=== PATIENT | male | born 1945 | race Caucasian/White ===

== ENCOUNTER 2017-10-04 15:21 | Emergency (ER) | payer OTHER ==
[2017-10-04] MEDS ORDERED: LIDOCAINE 1% 20 ML MDV ONE (18:26)
[2017-10-04] MEDS ORDERED: TETANUS & DIPHTHERIA TOX,ADULT 0.5 ML VIAL ONE (18:26)
[2017-10-04] MEDS ORDERED: CEFAZOLIN SODIUM 1 GM/VIAL ONE (20:21)
--- NOTE | 2017-10-04 20:57 | RAD REPORT ---
EXAM DESCRIPTION: RAD -Hand Left 3 View - 10/04/2017 6:53 pm CLINICAL HISTORY: Left hand pain status post injury FINDINGS: A bandage overlies the first digit history detail somewhat. Bony densities at the first IP joint probably are sesamoids and/or chronic. An acute avulsion fractur e is doubtful. However if the patient has clinical symptoms to suggest this then MRI would be recomme nded No dislocation is seen
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
== END 2017-10-04 21:57 | disposition home or self-care (01) ==
LOC: ER 15:21
PROC: 0JQK0ZZ Repair Left Hand Subcutaneous Tissue and Fascia, Open Approach (ICD-10-PCS; principal; 2017-10-04)
DX: S61.012A Laceration without foreign body of left thumb without damage to nail, initial encounter (principal); W33.19XA Accidental malfunction of other larger firearm, initial encounter; Y93.89 Activity, other specified; Y92.9 Unspecified place or not applicable; I10 Essential (primary) hypertension; E78.5 Hyperlipidemia, unspecified; Z79.01 Long term (current) use of anticoagulants; Z79.82 Long term (current) use of aspirin; Z95.818 Presence of other cardiac implants and grafts
CPT/HCPCS: 12002; 73130; 90714; 96372; 99283; J0690

== ENCOUNTER 2020-05-19 11:33 | Emergency (ER) | payer OTHER ==
--- OUTSIDE RECORDS SUMMARY | 2020-05-19 11:36 | XMS REPORT | Continuity of Care Document ---
:1945 [address] [facility] t Address [address] [place] [address] [address]. [address] [place] [address] Care Team Providers Name Role Phone Unavailable Unavailable Unavailable Problems This patient has no known problems. Allergies, Adverse Reactions, Alerts This patient has no known allergies or adverse reactions. Medications This patient has no known medications. Procedures This patient has no known procedures. Encounters Start End Encounter Admission Attending Care Care Encounter Source Date/Time Date/Time Type Type Clinicians Facility Department ID 2018-10-03 2018-10-03 Outpatient [id number] 06:32:00 06:32:00 Results This patient has no known results.
[2020-05-19 12:29] LABS: Basophils % 0.7 % (0-1.3); Lymphocytes % 19.5 % (15.3-44.8); MPV 8.1 fL (7.6-11.3); RBC Red Blood Cell Count 5.18 M/uL (4.33-5.43)
--- NOTE | 2020-05-19 12:31 | RAD REPORT ---
EXAM DESCRIPTION: RAD - Chest Single View - 05/19/2020 12:23 pm CLINICAL HISTORY: COUGH Chest pain. COMPARISON: CHEST PA AND LAT 2 VIEW dated 09/24/2014 FINDINGS: Portable technique limits examination quality. The lungs are grossly clear. The heart is normal in size. No displaced fractures. IMPRESSION: No acute intrathoracic process suspected.
[2020-05-19 12:34] LABS: Protime INR 1.01
[2020-05-19 12:48] LABS: ALT/SGPT 30 U/L (12-78); AST/SGOT 31 U/L (15-37); Albumin 2.8 g/dL (3.4-5.0); Alkaline Phosphatase 100 U/L (45-117); BUN Blood Urea Nitrogen 15 mg/dL (7-18); Bicarbonate 32 mmol/L (21-32); Bilirubin Direct 0.2 mg/dL (0-0.2); Bilirubin Total 0.6 mg/dL (0.2-1.0); Glucose Level 94 mg/dL (74-106); Magnesium 2.2 mg/dL (1.8-2.4); NT PRO-BNP 206 pg/mL (<125); Potassium 4.2 mmol/L (3.5-5.1); Protein, Total 6.7 g/dL (6.4-8.2); Sodium Level 139 mmol/L (136-145); Troponin (Emerg Dept Use Only) < 0.02 ng/mL (0.0-0.045)
[2020-05-19 13:24] LABS: Urine Blood NEGATIVE (NEG); Urine Glucose NEGATIVE (NEG); Urine Protein NEGATIVE (NEG); Urine Specific Gravity 1.025 (1.005-1.030)
[2020-05-19] MEDS ORDERED: NA CHLORIDE 0.9% 1,000 ML ONE ×2 (13:28→16:34)
--- NOTE | 2020-05-19 15:50 | ER ---
Nurse's Notes [facility] Name: Corina Foreman Age: 74 yrs Sex: Male : 1945 Arrival Date: 05/19/2020 Time: 11:34 Bed 13 Private MD: Diagnosis: Dyspnea;Weakness;Vomiting;Diarrhea, unspecified;Hypotension-RESOLVED;Viral pneumonia, unspecified Presentation: 05/19 11:43 Chief complaint: Patient states: Low BP at home for 2 days. 80/40 this morning. Reports ll1 weakness, malaise, dizziness, no appetite since . + diarrhea. Coronavirus screen: Client denies travel out of the [place] in the last 14 days. difficulty breathing, fatigue, Client presents with at least one sign or symptom that may indicate coronavirus-19. Standard/surgical mask placed on the client. Ebola Screen: Patient denies travel to an Ebola-affected area in the 21 days before illness onset. Initial Sepsis Screen: Does the patient meet any 2 criteria? No. Patient's initial sepsis screen is negative. Does the patient have a suspected source of infection? No. Patient's initial sepsis screen is negative. Risk Assessment: Do you want to hurt yourself or someone else? Patient reports no desire to harm self or others. Onset of symptoms was May 12, 2020. 11:43 Method Of Arrival: Wheelchair ll1 11:43 Acuity: CLEMENTE 2 ll1 Historical: - Allergies: 11:46 Hydrocodone-Acetaminophen; ll1 - PMHx: 11:46 Hyperlipidemia; Hypertension; ll1 - PSHx: 11:46 Heart stents; ll1 - Immunization history:: Flu vaccine is not up to date. - Social history:: Smoking status: Patient denies any tobacco usage or history of. - Family history:: not pertinent. Screenin:01 Abuse screen: Denies threats or abuse. Denies injuries from another. Nutritional ca1 screening: No deficits noted. Tuberculosis screening: No symptoms or risk factors identified. Fall Risk IV access (20 points). Assessment: 12:01 General: Appears in no apparent distress. comfortable, Behavior is calm, cooperative, ca1 appropriate for age. Pain: Denies pain. Neuro: Level of Consciousness is awake, alert, obeys commands, Oriented to person, place, time, situation. Cardiovascular: Heart tones S1 S2 present Capillary refill < 3 seconds Patient's skin is warm and dry. Rhythm is sinus rhythm. Respiratory: Airway is patent Respiratory effort is even, unlabored, Respiratory pattern is regular, symmetrical, Breath sounds are clear bilaterally. GI: Abdomen is flat, non-distended, Bowel sounds present X 4 quads. Abd is soft and non tender X 4 quads. : No signs and/or symptoms were reported regarding the genitourinary system. EENT: No signs and/or symptoms were reported regarding the EENT system. Derm: Skin is intact, is healthy with good turgor, Skin is pink, warm \T\ dry. Musculoskeletal: Circulation, motion, and sensation intact. Capillary refill < 3 seconds. 12:43 Reassessment: Patient appears in no apparent distress at this time. Patient and/or ca1 family updated on plan of care and expected duration. Pain level reassessed. Patient is alert, oriented x 3, equal unlabored respirations, skin warm/dry/pink. 13:41 Reassessment: Patient appears in no apparent distress at this time. Patient and/or ca1 family updated on plan of care and expected duration. Pain level reassessed. Patient is alert, oriented x 3, equal unlabored respirations, skin warm/dry/pink. 14:44 Reassessment: Patient appears in no apparent distress at this time. Patient and/or ca1 family updated on plan of care and expected duration. Pain level reassessed. Patient is alert, oriented x 3, equal unlabored respirations, skin warm/dry/pink. 15:56 Reassessment: Patient appears in no apparent distress at this time. Patient and/or ca1 family updated on plan of care and expected duration. Pain level reassessed. Patient is alert, oriented x 3, equal unlabored respirations, skin warm/dry/pink. General: Appears. 16:50 Reassessment: Patient appears in no apparent distress at this time. Patient and/or ca1 family updated on plan of care and expected duration. Pain level reassessed. Patient is alert, oriented x 3, equal unlabored respirations, skin warm/dry/pink. 17:36 Reassessment: Patient appears in no apparent distress at this time. Patient is alert, ca1 oriented x 3, equal unlabored respirations, skin warm/dry/pink. Patient states feeling better. Vital Signs: 11:43 BP 107 / 85; Pulse 69; Resp 18; Temp 97.7; Pulse Ox 96% ; Weight 106.59 kg; Height 5 ll1 ft. 9 in. (175.26 cm); 12:43 BP 110 / 74; Pulse 66; Resp 20 S; Pulse Ox 97% on R/A; ca1 13:41 BP 113 / 74; Pulse 63; Resp 16 S; Pulse Ox 97% on R/A; ca1 14:44 BP 124 / 88; Pulse 65; Resp 18 S; Pulse Ox 98% on R/A; ca1 15:35 BP 114 / 78 LA Supine (auto/reg); Pulse 63; Resp 17; Pulse Ox 98% on R/A; dh4 15:35 BP 104 / 73 LA Standing (auto/reg); Pulse 68; Resp 21; Pulse Ox 97% ; dh4 15:35 BP 123 / 87 LA Sitting (auto/reg); Pulse 70; Resp 22; Pulse Ox 97% on R/A; dh4 16:21 BP 120 / 70; Pulse 68; Resp 18 S; Pulse Ox 98% on R/A; ca1 17:07 BP 137 / 86; Pulse 68; Resp 15 S; Pulse Ox 98% on R/A; ca1 17:36 BP 130 / 76; Pulse 71; Resp 18 S; Pulse Ox 98% on R/A; ca1 11:43 Body Mass Index 34.70 (106.59 kg, 175.26 cm) ll1 ED Course: 11:34 Patient arrived in ED. as 11:43 Arm band placed on. ll1 11:45 Triage completed. ll1 11:51 Albert Her MD is Attending Physician. [facility] 11:59 Anca Britton, JAIME is Primary Nurse. ca1 12:01 Patient has correct armband on for positive identification. Placed in gown. Bed in low ca1 position. Call light in reach. Side rails up X2. night monitor on. Pulse ox on. NIBP on. Warm blanket given. 12:13 No provider procedures requiring assistance completed. Initial lab(s) drawn, by me, ca1 sent to lab. Inserted saline lock: 20 gauge in right antecubital area, using aseptic technique. Blood collected. 12:23 XRAY Chest (1 view) In Process Unspecified. EDMS 13:19 CORONAVIRUS Sent. ca1 15:50 Nader Topete MD is Referral Physician. mis 16:06 CT Chest For PE Angio In Process Unspecified. EDMS 16:18 Troponin (emerg Dept Use Only) Sent. ca1 16:18 Repeat lab(s) drawn. by me, sent to lab. ca1 16:39 Kelby Rodgers MD is Referral Physician. mis 17:36 IV discontinued, intact, bleeding controlled, No redness/swelling at site. Pressure ca1 dressing applied. Administered Medications: 13:13 Drug: NS 0.9% 1000 ml Route: IV; Rate: 1 bolus; Site: right antecubital; ca1 14:15 Follow up: IV Status: Completed infusion; IV Intake: 1000ml ca1 16:21 Drug: NS 0.9% 1000 ml Route: IV; Rate: 1 bolus; Site: right antecubital; ca1 17:30 Follow up: Response: No adverse reaction; RASS: Alert and Calm (0); IV Status: ca1 Completed infusion; IV Intake: 1000ml 16:45 Drug: Zithromax 500 mg Route: PO; ca1 17:30 Follow up: Response: No adverse reaction ca1 16:46 Drug: Pepcid 20 mg Route: IVP; Site: right antecubital; ca1 17:00 Follow up: Response: No adverse reaction ca1 17:00 Drug: Decadron - Dexamethasone 6 mg Route: IVP; Site: right antecubital; ca1 17:30 Follow up: Response: No adverse reaction ca1 17:07 Drug: Rocephin 1 grams Route: IV; Rate: per protocol; Site: right antecubital; ca1 Intake: 14:15 IV: 1000ml; Total: 1000ml. ca1 17:30 IV: 1000ml; Total: 2000ml. ca1 Outcome: 15:50 Discharge ordered by . mis 17:36 Discharged to home ambulatory, with family. ca1 17:36 Condition: stable 17:36 Discharge instructions given to patient, Instructed on discharge instructions, follow up and referral plans. medication usage, Demonstrated understanding of instructions, follow-up care, medications, Prescriptions given X 4. 17:38 Patient left the ED. ll1 Addendum: 05/23/2020 15:46 Addendum: COVID-19 Result: Positive result giiven to ED physician to notify pt. i w Physician: Luis Shin MD Physician attempted to contact pt. 16:16 Addendum: COVID-19 Result: Positive result giiven to ED physician to notify pt. i w Physician: Luis Shin MD Physician was able to contact pt and pt was notified of positive COVID-19 swab result. Physician answered pt questions. Signatures: Dispatcher [employer] Albert Francisco MD MD cha Martinez, Amelia as Williams, Irene, RN RN iw Anca Britton RN RN [facility] Parag Vazquez [facility] Roland De La Fuente RN RN ll1 Corrections: (The following items were deleted from the chart) 1548 15:46 Addendum: COVID-19 Result: Positive result giiven to ED physician to notify pt. iw Physician: Luis Shin MD Physician was able to contact pt and pt was notified of positive COVID-19 swab result. Physician answered pt questions. 1548 15:46 Addendum: COVID-19 Result: Positive result giiven to ED physician to notify pt. iw Physician: Luis Shin MD Physician attempted to contact pt. iw
--- NOTE | 2020-05-19 15:51 | EDPHYS ---
Physician Documentation [facility] Name: Corina Foreman Age: 74 yrs Sex: Male : 1945 Arrival Date: 05/19/2020 Time: 11:34 Bed 13 Private MD: ED Physician Albert Her HPI: 05/19 13:02 This 74 yrs old Male presents to ER via Wheelchair with complaints of Blood mis Pressure Problem, Dizziness. 13:02 The patient presents with dizziness. Onset: The symptoms/episode began/occurred 4 mis day(s) ago. Context: occurred at an unknown location. Modifying factors: The symptoms are alleviated by nothing, the symptoms are aggravated by movement of head. Associated signs and symptoms: Pertinent positives: palpitations. Severity of symptoms: At their worst the symptoms were mild in the emergency department the symptoms are unchanged. Patient's baseline: Neuro: alert and fully oriented. The patient has not experienced similar symptoms in the past. Historical: - Allergies: 11:46 Hydrocodone-Acetaminophen; ll1 - PMHx: 11:46 Hyperlipidemia; Hypertension; ll1 - PSHx: 11:46 Heart stents; ll1 - Immunization history:: Flu vaccine is not up to date. - Social history:: Smoking status: Patient denies any tobacco usage or history of. - Family history:: not pertinent. ROS: 13:02 Constitutional: Negative for fever, chills, and weight loss, Eyes: Negative for injury, mis pain, redness, and discharge, ENT: Negative for injury, pain, and discharge, Neck: Negative for injury, pain, and swelling, Cardiovascular: Negative for chest pain, palpitations, and edema, Respiratory: Negative for shortness of breath, cough, wheezing, and pleuritic chest pain, Abdomen/GI: Negative for abdominal pain, nausea, vomiting, diarrhea, and constipation, Back: Negative for injury and pain, : Negative for injury, bleeding, discharge, and swelling, MS/Extremity: Negative for injury and deformity, Skin: Negative for injury, rash, and discoloration, Psych: Negative for depression, anxiety, suicide ideation, homicidal ideation, and hallucinations, Allergy/Immunology: Negative for hives, rash, and allergies, Endocrine: Negative for neck swelling, polydipsia, polyuria, polyphagia, and marked weight changes, Hematologic/Lymphatic: Negative for swollen nodes, abnormal bleeding, and unusual bruising. 13:02 Neuro: Positive for weakness. Exam: 13:02 Constitutional: This is a well developed, well nourished patient who is awake, alert, mis and in no acute distress. Head/Face: Normocephalic, atraumatic. Eyes: Pupils equal round and reactive to light, extra-ocular motions intact. Lids and lashes normal. Conjunctiva and sclera are non-icteric and not injected. Cornea within normal limits. Periorbital areas with no swelling, redness, or edema. ENT: Nares patent. No nasal discharge, no septal abnormalities noted. Tympanic membranes are normal and external auditory canals are clear. Oropharynx with no redness, swelling, or masses, exudates, or evidence of obstruction, uvula midline. Mucous membranes moist. Neck: Trachea midline, no thyromegaly or masses palpated, and no cervical lymphadenopathy. Supple, full range of motion without nuchal rigidity, or vertebral point tenderness. No Meningismus. Chest/axilla: Normal chest wall appearance and motion. Nontender with no deformity. No lesions are appreciated. Cardiovascular: Regular rate and rhythm with a normal S1 and S2. No gallops, murmurs, or rubs. Normal PMI, no JVD. No pulse deficits. Respiratory: Lungs have equal breath sounds bilaterally, clear to auscultation and percussion. No rales, rhonchi or wheezes noted. No increased work of breathing, no retractions or nasal flaring. Abdomen/GI: Soft, non-tender, with normal bowel sounds. No distension or tympany. No guarding or rebound. No evidence of tenderness throughout. Back: No spinal tenderness. No costovertebral tenderness. Full range of motion. Male : Normal genitalia with no discharge or lesions. Skin: Warm, dry with normal turgor. Normal color with no rashes, no lesions, and no evidence of cellulitis. MS/ Extremity: Pulses equal, no cyanosis. Neurovascular intact. Full, normal range of motion. Neuro: Awake and alert, GCS 15, oriented to person, place, time, and situation. Cranial nerves II-XII grossly intact. Motor strength 5/5 in all extremities. Sensory grossly intact. Cerebellar exam normal. Normal gait. Psych: Awake, alert, with orientation to person, place and time. Behavior, mood, and affect are within normal limits. 15:44 Musculoskeletal/extremity: DVT Exam: No signs of deep vein thrombosis. no pain, no mis swelling, no tenderness, negative Homans' sign noted on exam, no appreciated bluish discoloration, no erythema, no increased warmth. Vital Signs: 11:43 BP 107 / 85; Pulse 69; Resp 18; Temp 97.7; Pulse Ox 96% ; Weight 106.59 kg; Height 5 ll1 ft. 9 in. (175.26 cm); 12:43 BP 110 / 74; Pulse 66; Resp 20 S; Pulse Ox 97% on R/A; ca1 13:41 BP 113 / 74; Pulse 63; Resp 16 S; Pulse Ox 97% on R/A; ca1 14:44 BP 124 / 88; Pulse 65; Resp 18 S; Pulse Ox 98% on R/A; ca1 15:35 BP 114 / 78 LA Supine (auto/reg); Pulse 63; Resp 17; Pulse Ox 98% on R/A; dh4 15:35 BP 104 / 73 LA Standing (auto/reg); Pulse 68; Resp 21; Pulse Ox 97% ; dh4 15:35 BP 123 / 87 LA Sitting (auto/reg); Pulse 70; Resp 22; Pulse Ox 97% on R/A; dh4 16:21 BP 120 / 70; Pulse 68; Resp 18 S; Pulse Ox 98% on R/A; ca1 17:07 BP 137 / 86; Pulse 68; Resp 15 S; Pulse Ox 98% on R/A; ca1 17:36 BP 130 / 76; Pulse 71; Resp 18 S; Pulse Ox 98% on R/A; ca1 11:43 Body Mass Index 34.70 (106.59 kg, 175.26 cm) ll1 MDM: 11:51 Patient medically screened. mis 13:05 Differential diagnosis: cardiac arrhythmia, generalized weakness. Data reviewed: vital mis signs, nurses notes, lab test result(s), EKG, radiologic studies. Data interpreted: monitor tech: rate is 66 beats/min, rhythm is regular, Pulse oximetry: on room air is 97 %. Test interpretation: by ED physician or midlevel provider: ECG, plain radiologic studies. Counseling: I had a detailed discussion with the patient and/or guardian regarding: the historical points, exam findings, and any diagnostic results supporting the discharge/admit diagnosis, lab results, radiology results. 05/19 11:54 Order name: Basic Metabolic Panel; Complete Time: 13:01 [facility] 05/19 11:54 Order name: CBC with Diff; Complete Time: 13: [facility] 05/19 11:54 Order name: LFT's; Complete Time: 13: [facility] 05/19 11:54 Order name: Magnesium; Complete Time: 13: [facility] 05/19 11:54 Order name: NT PRO-BNP; Complete Time: 13: [facility] 05/19 11:54 Order name: PT-INR; Complete Time: 13: [facility] 05/19 11:54 Order name: Troponin (emerg Dept Use Only); Complete Time: 13: [facility] 05/19 11:54 Order name: XRAY Chest (1 view); Complete Time: 13: [facility] 05/19 12:23 Order name: Urine Dipstick--Ancillary (enter results); Complete Time: 14:39 em1 05/19 13:01 Order name: TSH; Complete Time: 14:39 [facility] 05/19 13:02 Order name: COVID-19 [facility] 05/19 13:02 Order name: CORONAVIRUS EDAK 05/19 15:45 Order name: CT Chest For PE Angio; Complete Time: 16:35 [facility] 05/19 15:46 Order name: Troponin (emerg Dept Use Only); Complete Time: 16:45 [facility] 05/19 11:54 Order name: EKG; Complete Time: 11:54 [facility] 05/19 11:54 Order name: Cardiac monitoring; Complete Time: 12:13 [facility] 05/19 11:54 Order name: EKG - Nurse/Tech; Complete Time: 12:13 [facility] 05/19 11:54 Order name: IV Saline Lock; Complete Time: 12:13 [facility] 05/19 11:54 Order name: Labs collected and sent; Complete Time: 12:13 [facility] 05/19 11:54 Order name: O2 Per Protocol; Complete Time: 12:13 [facility] 05/19 11:54 Order name: O2 Sat Monitoring; Complete Time: 12:13 [facility] 05/19 11:54 Order name: Urine Dipstick-Ancillary (obtain specimen); Complete Time: 12:21 [facility] 05/19 13:02 Order name: PO challenge; Complete Time: 13: [facility] 05/19 14:40 Order name: Orthostatics; Complete Time: 15:37 mis 05/19 15:46 Order name: Repeat Cardiac Enzymes at; Complete Time: 16:18 mis Administered Medications: 13:13 Drug: NS 0.9% 1000 ml Route: IV; Rate: 1 bolus; Site: right antecubital; ca1 14:15 Follow up: IV Status: Completed infusion; IV Intake: 1000ml ca1 16:21 Drug: NS 0.9% 1000 ml Route: IV; Rate: 1 bolus; Site: right antecubital; ca1 17:30 Follow up: Response: No adverse reaction; RASS: Alert and Calm (0); IV Status: ca1 Completed infusion; IV Intake: 1000ml 16:45 Drug: Zithromax 500 mg Route: PO; ca1 17:30 Follow up: Response: No adverse reaction ca1 16:46 Drug: Pepcid 20 mg Route: IVP; Site: right antecubital; ca1 17:00 Follow up: Response: No adverse reaction ca1 17:00 Drug: Decadron - Dexamethasone 6 mg Route: IVP; Site: right antecubital; ca1 17:30 Follow up: Response: No adverse reaction ca1 17:07 Drug: Rocephin 1 grams Route: IV; Rate: per protocol; Site: right antecubital; ca1 Disposition: 05/19/20 15:50 Discharged to Home. Impression: Dyspnea, Weakness, Vomiting, Diarrhea, unspecified, Hypotension - RESOLVED, Viral pneumonia, unspecified. - Condition is Stable. - Discharge Instructions: Dehydration, Adult, Hypotension, Nausea and Vomiting, Adult, Community-Acquired Pneumonia, Adult, Shortness of Breath, Weakness, Shortness of Breath, Vhcq-vc-Cnhw, Nausea and Vomiting, Adult, Qqys-vz-Keff, Diarrhea, Adult, Afec-ft-Qhfx, Hypotension, Vnwd-js-Oiqt, Weakness, Wyqi-lg-Lqnj, Dehydration, Adult, Wjuy-ta-Tkqb, Aspirin and Your Heart, COVID-19. - Prescriptions for Zofran 4 mg Oral Tablet - take 1 tablet by ORAL route every 12 hours As needed; 20 tablet. dexamethasone 2 mg Oral tablet - take 1 tablet by ORAL route 3 times per day; 15 tablet. Pepcid 20 mg Oral Tablet - take 1 tablet by ORAL route every 12 hours for 10 days; 20 tablet. Zithromax 500 mg Oral Tablet - take 1 tablet by ORAL route once daily for 4 days; 4 tablet. - Medication Reconciliation Form, Thank You Letter, Antibiotic Education, Prescription Opioid Use form. - Follow up: Private Physician; When: 2 - 3 days; Reason: Recheck today's complaints, Continuance of care, Re-evaluation by your physician. Follow up: Nader Topete; When: 2 - 3 days; Reason: Recheck today's complaints, Re-evaluation by your physician. Follow up: Kelby Rodgers MD; When: 2 - 3 days; Reason: Recheck today's complaints, Re-evaluation by your physician. - Problem is new. - Symptoms have improved. Addendum: 05/23/2020 12:19 Addendum: Notified of + test result of COVID-19. Feels fine, no abnormal vitals. . r n Signatures: Dispatcher [employer] EDMS Albert Her MD MD cha Nieto, Roman, MD MD rn Acob, JAIME March RN Roland Bardales RN RN ll1 Corrections: (The following items were deleted from the chart) 05/19 16:39 15:50 05/19/2020 15:50 Discharged to Home. Impression: Dyspnea; Weakness; Vomiting; mis Diarrhea, unspecified; Hypotension - RESOLVED. Condition is Stable. Discharge Instructions: Dehydration, Adult, Hypotension, Nausea and Vomiting, Adult, Shortness of Breath, Weakness, Shortness of Breath, Tlce-nx-Ercx, Nausea and Vomiting, Adult, Yylf-kw-Dwoj, Diarrhea, Adult, Jeho-kk-Gmqw, Hypotension, Xrkw-xd-Cbqa, Weakness, Bozb-cq-Qmty, Dehydration, Adult, Ezpq-pa-Dgvg. Prescriptions for Zofran 4 mg Oral Tablet - take 1 tablet by ORAL route every 12 hours As needed; 20 tablet. and Forms are Medication Reconciliation Form, Thank You Letter, Antibiotic Education, Prescription Opioid Use. Follow up: Private Physician; When: 2 - 3 days; Reason: Recheck today's complaints, Continuance of care, Re-evaluation by your physician. Follow up: Nader Topete; When: 2 - 3 days; Reason: Recheck today's complaints, Re-evaluation by your physician. Problem is new. Symptoms have improved. mis 17:38 16:39 05/19/2020 15:50 Discharged to Home. Impression: Dyspnea; Weakness; Vomiting; ll1 Diarrhea, unspecified; Hypotension - RESOLVED; Viral pneumonia, unspecified. Condition is Stable. Discharge Instructions: Dehydration, Adult, Hypotension, Nausea and Vomiting, Adult, Shortness of Breath, Weakness, Shortness of Breath, Lewd-qf-Nnnh, Nausea and Vomiting, Adult, Lnku-au-Odlf, Diarrhea, Adult, Fshd-nc-Ezwe, Hypotension, Gygu-zk-Fyfb, Weakness, Ktkw-fl-Vfvx, Dehydration, Adult, Anwh-uo-Dlep. Prescriptions for Zofran 4 mg Oral Tablet - take 1 tablet by ORAL route every 12 hours As needed; 20 tablet. and Forms are Medication Reconciliation Form, Thank You Letter, Antibiotic Education, Prescription Opioid Use. Follow up: Private Physician; When: 2 - 3 days; Reason: Recheck today's complaints, Continuance of care, Re-evaluation by your physician. Follow up: Nader Topete; When: 2 - 3 days; Reason: Recheck today's complaints, Re-evaluation by your physician. Follow up: Kelby Rodgers; When: 2 - 3 days; Reason: Recheck today's complaints, Re-evaluation by your physician. Problem is new. Symptoms have improved. mis
--- NOTE | 2020-05-19 16:21 | RAD REPORT ---
EXAM DESCRIPTION: CT - Chest For Pe Angio - 05/19/2020 4:05 pm CLINICAL HISTORY: Chest pain. DYSPNEA COMPARISON: No comparisons TECHNIQUE: CT angiogram of the pulmonary arteries was performed with MIP. All CT scans are performed using dose optimization technique as appropriate and may include automated exposure control or mA/KV adjustment according to patient size. FINDINGS: No evidence of pulmonary thromboembolism. No acute aortic finding demonstrated. Subtle areas of ground-glass attenuation are seen in both lungs greatest in the posterior aspects of both upper lobes. Small irregular area of nodularity is seen in the lateral aspect of the lingula harjinder suring 16 x 12 mm, nonspecific. No significant pericardial or pleural fluid. No concerning bony finding. IMPRESSION: No evidence of pulmonary thromboembolism. Areas of ground-glass attenuation both posterior upper lobes has the appearance of atypical or viral infection. Small 16 x 12 mm area of irregularly-shaped nodularity in the lingula warrants follow-up CT chest in 3 months.
[2020-05-19] MEDS ORDERED: AZITHROMYCIN 250 MG TAB ONE (17:11)
[2020-05-19] MEDS ORDERED: FAMOTIDINE 20 MG/2 ML VIAL IV ONE (17:11)
[2020-05-19] MEDS ORDERED: CEFTRIAXONE/SWI 1gm 1 GM/10 ML SYR ONE (17:11)
[2020-05-19] MEDS ORDERED: dexAMETHasone 10 MG/ML VIAL ONE (17:11)
[2020-05-19 17:48] VITALS: TEMP 97.7
[2020-05-19 17:55] VITALS: O2SAT 98
[2020-05-19 17:57] VITALS: BP 130/76
== END 2020-05-19 17:38 | disposition home or self-care (01) ==
LOC: ER 11:33
DX: U07.1 COVID-19 (principal); J12.9 Viral pneumonia, unspecified; R53.1 Weakness; R11.10 Vomiting, unspecified; R19.7 Diarrhea, unspecified; I10 Essential (primary) hypertension; Z88.5 Allergy status to narcotic agent; Z95.818 Presence of other cardiac implants and grafts
CPT/HCPCS: 96361; 93005; 85025; 80048; 36415; 83735; 85610; 80076; 84443; 81003; 84484 ×2; 83880; 71275; 71045; 96375; 96374; 99284; U0002; Q9967; J1100; J0696; J7030 ×2